=== PATIENT | male | born 1970 | race Caucasian/White ===

== ENCOUNTER 2020-07-04 11:30 | Emergency (ER) | payer OTHER ==
[~2020-07-04] VITALS: Ht 188 cm; Wt 128.4 kg
--- OUTSIDE RECORDS SUMMARY | 2020-07-04 11:51 | XMS REPORT | Continuity of Care Document ---
Author Author [id number] Organization [facility] Address Unknown Phone Unavailable Care Team Providers Care Sql Engineer Name Role Phone [employer] Unavailable Un available Problems Problem Status Onset Date Classification Date Reported Comments Source 453.9 - VENOUS THROMBOS Active 09/26/2012 [employer] Medications No Data Provided for This Section Allergies, Adverse Reactions, Alerts No Known Medication Allergies Immunizations No Data Provided for This Section Results No Data Provided for This Section Pathology Reports No Data Provided for This Section Diagnostic Reports No Data Provided for This Section Consultation Notes No Data Provided for This Section Discharge Summaries No Data Provided for This Section History and Physicals No Data Provided for This Section Vital Signs No Data Provided for This Section Encounters Location Location Details Encounter Type Encounter Number Reason For Visit Attending Provider ADM Date DC Date Status Source OD [id number] 453.9 - VENOUS THROMBOS AHSAN LEI 09/28/2012 Active [employer] Procedures No Data Provided for This Section Assessment and Plan No Data Provided for This Section Plan of Care No Data Provided for This Section Social History No Data Provided for This Section Family History No Data Provided for This Section Advance Directives No Data Provided for This Section Functional Status No Data Provided for This Section
--- OUTSIDE RECORDS SUMMARY | 2020-07-04 11:51 | XMS REPORT | Continuity of Care Document ---
Author Author [facility] Organization [facility] Address [address] [place] [address] Phone Unavailable Care Team Providers Care [employer] Supervisor Name Role Phone Unavailable Unavailable Payers Payer Name Policy Type Policy Number Effective Date Expiration Date S ource Problems Condition Name Condition Details Condition Category Status Onset Date Resolution Date Last Treatment Date Treating Clinician Comments Source 453.9 - VENOUS THROMBOS 453. 9 - VENOUS THROMBOS Active 09/26/2012 [facility] Diagnosis Active 2012-09-26 00:01:00 2012-09-28 15:33:00 [facility] Allergies, Adverse Reactions, Alerts Allergy Name Allergy Type Status Severity Reaction(s) Onset Date Inacti ve Date Treating Clinician Comments Source No Known Allergies DA Active U 2019-12-26 00:00:00 [facility] Medications This patient has no known medications. Procedures This patient has no known procedures. Results This patient has no known results.
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
== END 2020-07-04 12:53 | disposition home or self-care (01) ==
LOC: ER 11:42
DX: S16.1XXA Strain of muscle, fascia and tendon at neck level, initial encounter (principal); M25.512 Pain in left shoulder; V53.6XXA Passenger in pick-up truck or van injured in collision with car, pick-up truck or van in traffic accident, initial encounter; Y92.488 Other paved roadways as the place of occurrence of the external cause; I10 Essential (primary) hypertension; E11.9 Type 2 diabetes mellitus without complications; E78.5 Hyperlipidemia, unspecified; I25.2 Old myocardial infarction; Z95.1 Presence of aortocoronary bypass graft; Z86.73 Personal history of transient ischemic attack (TIA), and cerebral infarction without residual deficits
CPT/HCPCS: 99282

== ENCOUNTER 2021-02-14 09:54 | Observation (INO) | payer OTHER ==
[~2021-02-14] VITALS: Ht 188 cm; Wt 128.4 kg
[2021-02-14] MEDS ORDERED: SODIUM CHLORIDE 0.9% 500ML 500 ML IV ONE (10:15)
[2021-02-14 10:22] LABS: BASOPHILS # (AUTO) 0.1 (0.0-0.1); BASOPHILS % 0.7 % (0.0-1.0); EOSINOPHILS # (AUTO) 0.2 (0.0-0.4); HEMATOCRIT 41.7 % (38.2-49.6); HEMOGLOBIN 13.2 g/dL (14.0-18.0); LYMPHOCYTES # (AUTO) 1.8 (1.0-3.2); LYMPHOCYTES % 22.3 % (18.0-39.1); MEAN CORPUSCULAR HEMOGLOBIN 25.2 pg (28-32); MEAN CORPUSCULAR HGB CONC 31.7 g/dL (31-35); MEAN CORPUSCULAR VOLUME 79.6 fL (81-99); MONOCYTES # (AUTO) 0.6 (0.2-0.8); MONOCYTES % 7.3 % (4.4-11.3); NEUTROPHILS # (AUTO) 5.4 (2.1-6.9); NEUTROPHILS % 66.5 % (38.7-80.0); PLATELET COUNT 177 x10e3/uL (140-360); RED BLOOD COUNT 5.24 x10e6/uL (4.3-5.7); RED CELL DISTRIBUTION WIDTH 14.6 % (11.7-14.4)
[2021-02-14 10:37] LABS: ALBUMIN 3.5 g/dL (3.5-5.0); ALBUMIN/GLOBULIN RATIO 1.1 (0.8-2.0); ANION GAP 14.4 mmol/L (8-16); CALCIUM 8.6 mg/dL (8.4-10.2); CREATININE, SERUM 1.41 mg/dL (0.72-1.25); POTASSIUM 4.4 mmol/L (3.5-5.1)
[2021-02-14 10:44] LABS: CREATINE KINASE MB 4.7 ng/mL (0-5.0); INR 0.94; PARTIAL THROMBOPLASTIN TIME 27.4 seconds (23.8-35.5); PROTHROMBIN TIME 13.2 seconds (11.9-14.5)
[2021-02-14] MEDS ORDERED: ONDANSETRON HCL INJ 2MG/ML 2ML 2 MG/ML VIAL IV PRN (12:15)
[2021-02-14] MEDS ORDERED: DEXTROSE 50% SYRINGE 50 ML IV PRN (12:15)
[2021-02-14 14:15] LABS: CLARITY,URINE CLEAR (CLEAR); COLOR,URINE YELLOW (YELLOW); LEUKOCYTE ESTERASE ,URINE NEGATIVE (NEGATIVE); NITRITE,URINE NEGATIVE (NEGATIVE); PROTEIN,URINE DIPSTICK >=300 (NEGATIVE)
[2021-02-14 14:16] LABS: KETONES,URINE NEGATIVE (NEGATIVE); URINE UROBILINOGEN 0.2 mg/dL (0.2 - 1)
[2021-02-14 14:33] LABS: BACTERIA,URINE FEW /HPF; EPITHELIAL CELLS,URINE RARE /LPF; RBC,URINE 0-5 /HPF (0-5); WBC,URINE (MAN) 0-5 /HPF (0-5)
[2021-02-14 16:04] VITALS: BP 139/87
[2021-02-14] MEDS: INSULIN LISPRO 100 UNIT/1 ML 3ML VIAL SQ SCH ×2 (16:30→21:00)
[2021-02-14] MEDS ORDERED: METOPROLOL SUCC50 MG PO (16:56)
[2021-02-14] MEDS ORDERED: NEURONTIN400 MG PO (16:56)
[2021-02-14] MEDS ORDERED: MICARDIS80 MG PO (16:56)
[2021-02-14] MEDS ORDERED: TRULICITY1.5 MG/0.5 SQ (16:56)
[2021-02-14] MEDS ORDERED: WELCHOL625 MG PO (16:56)
[2021-02-14] MEDS ORDERED: FUROSEMIDE40 MG PO (16:56)
[2021-02-14] MEDS ORDERED: LANTUS 3ML100 UNITS/ SQ (16:56)
[2021-02-14] MEDS ORDERED: ASPIRIN325 MG PO (16:56)
[2021-02-14] MEDS ORDERED: XIGDUO XR 10 M1 EAC1 PO (16:56)
[2021-02-14] MEDS ORDERED: atorvastatin PO (16:56)
[2021-02-14 17:03] VITALS: BP 139/87
[2021-02-14 17:35] VITALS: BP 139/87
[2021-02-14] MEDS: MORPHINE SULFATE INJ 2 MG/ML SYR IV PRN ×2 (18:06→21:25)
[2021-02-14 18:08] LABS: CREATINE KINASE MB 4.3 ng/mL (0-5.0)
[2021-02-14] MEDS ORDERED: HUMALOG MI100 UNIT/2 SQ (18:30)
[2021-02-14 19:46] VITALS: BP 136/85
[2021-02-14 20:00] VITALS: BP 136/85
[2021-02-15] VITALS (9 sets, daily range): BP systolic 113–154; BP diastolic 69–88
[2021-02-15] MEDS: MORPHINE SULFATE INJ 2 MG/ML SYR IV PRN ×3 (00:50→08:32)
[2021-02-15 02:16] LABS: CREATINE KINASE MB 2.3 ng/mL (0-5.0)
[2021-02-15 05:17] LABS: BASOPHILS # (AUTO) 0.1 (0.0-0.1); BASOPHILS % 0.5 % (0.0-1.0); EOSINOPHILS # (AUTO) 0.2 (0.0-0.4); EOSINOPHILS % 1.5 % (0.0-6.0); HEMATOCRIT 38.1 % (38.2-49.6); LYMPHOCYTES # (AUTO) 1.5 (1.0-3.2); LYMPHOCYTES % 14.3 % (18.0-39.1); MEAN CORPUSCULAR HEMOGLOBIN 24.7 pg (28-32); MEAN CORPUSCULAR HGB CONC 31.5 g/dL (31-35); MEAN CORPUSCULAR VOLUME 78.6 fL (81-99); MONOCYTES # (AUTO) 0.9 (0.2-0.8); MONOCYTES % 8.7 % (4.4-11.3); NEUTROPHILS # (AUTO) 7.7 (2.1-6.9); NEUTROPHILS % 74.7 % (38.7-80.0); PLATELET COUNT 183 x10e3/uL (140-360); RED BLOOD COUNT 4.85 x10e6/uL (4.3-5.7); RED CELL DISTRIBUTION WIDTH 14.6 % (11.7-14.4)
[2021-02-15 05:57] LABS: ALANINE AMINOTRANSFERASE 39 IU/L (0-55); ALBUMIN 3.1 g/dL (3.5-5.0); ALKALINE PHOSPHATASE 38 IU/L (40-150); BLOOD UREA NITROGEN 24 mg/dL (7-26); BUN/CREATININE RATIO 20 (6-25); CALCIUM 8.4 mg/dL (8.4-10.2); CARBON DIOXIDE 23 mmol/L (22-29); CHLORIDE 108 mmol/L (98-107); CHOL/HDL RATIO 4.1 (3.9-4.7); CHOLESTEROL 90 MD/DL (0-199); CREATININE, SERUM 1.18 mg/dL (0.72-1.25); EST GLOMERULAR FILTRATION RATE > 60 ML/MIN (60-); GLUCOSE 146 mg/dL (74-118); HDL CHOLESTEROL 22 MG/DL (40-60); LDL CHOLESTEROL 42 MG/DL (60-130); SODIUM 141 mmol/L (136-145); TRIGLYCERIDES 131 MG/DL (0-149)
[2021-02-15 06:17] LABS: CREATINE KINASE MB 1.9 ng/mL (0-5.0)
[2021-02-15] MEDS: ATORVASTATIN 40 MG TAB PO SCH (08:30)
[2021-02-15] MEDS: ASPIRIN 325 MG TAB PO SCH (08:30)
[2021-02-15] MEDS: GABAPENTIN 400 MG CAP PO SCH ×2 (08:30→17:20)
[2021-02-15] MEDS: METOPROLOL SUCCINATE 50 MG TAB XL PO SCH (08:31)
[2021-02-15] MEDS: COLESEVELAM HCL 625 MG TAB PO SCH ×2 (08:31→17:20)
[2021-02-15] MEDS: INSULIN GLARGINE 100 UNITS/ML VIAL SQ SCH (08:31)
[2021-02-15] MEDS: INSULIN LISPRO 100 UNIT/1 ML 3ML VIAL SQ SCH ×4 (08:32→20:56)
[2021-02-15] MEDS ORDERED: FUROSEMIDE 20 MG TAB PO SCH (09:00)
[2021-02-15] MEDS ORDERED: MORPHINE SULFATE INJ 2 MG/ML SYR IV PRN (12:30)
[2021-02-15] MEDS: MORPHINE SULFATE INJ 4 MG/ML INJ 1ML IV PRN ×2 (13:00→18:30)
[2021-02-15] MEDS ORDERED: ONDANSETRON HCL 4 MG ORAL DISINTEGRATING TAB PO PRN (13:30)
[2021-02-15] MEDS: LIDOCAINE 4% PATCH TP SCH (16:04)
[2021-02-15] MEDS ORDERED: ENOXAPARIN SOD INJ 40 MG/0.4 ML SYR SC SCH (17:00)
[2021-02-16 04:00] VITALS: BP 131/86
[2021-02-16 05:09] LABS: BASOPHILS # (AUTO) 0.1 (0.0-0.1); BASOPHILS % 0.5 % (0.0-1.0); EOSINOPHILS # (AUTO) 0.2 (0.0-0.4); EOSINOPHILS % 1.6 % (0.0-6.0); HEMOGLOBIN 12.1 g/dL (14.0-18.0); LYMPHOCYTES # (AUTO) 1.7 (1.0-3.2); LYMPHOCYTES % 17.1 % (18.0-39.1); MEAN CORPUSCULAR HEMOGLOBIN 24.8 pg (28-32); MEAN CORPUSCULAR HGB CONC 31.8 g/dL (31-35); MEAN CORPUSCULAR VOLUME 77.9 fL (81-99); MONOCYTES % 10.4 % (4.4-11.3); NEUTROPHILS # (AUTO) 6.9 (2.1-6.9); NEUTROPHILS % 70.1 % (38.7-80.0); PLATELET COUNT 161 x10e3/uL (140-360); RED BLOOD COUNT 4.88 x10e6/uL (4.3-5.7); RED CELL DISTRIBUTION WIDTH 14.7 % (11.7-14.4)
[2021-02-16 05:28] LABS: ALANINE AMINOTRANSFERASE 29 IU/L (0-55); ALBUMIN/GLOBULIN RATIO 0.9 (0.8-2.0); ALKALINE PHOSPHATASE 43 IU/L (40-150); ANION GAP 12.2 mmol/L (8-16); BLOOD UREA NITROGEN 24 mg/dL (7-26); BUN/CREATININE RATIO 21 (6-25); CALCIUM 8.2 mg/dL (8.4-10.2); CARBON DIOXIDE 23 mmol/L (22-29); CHLORIDE 105 mmol/L (98-107); CREATININE, SERUM 1.13 mg/dL (0.72-1.25); EST GLOMERULAR FILTRATION RATE > 60 ML/MIN (60-); GLUCOSE 164 mg/dL (74-118); POTASSIUM 4.2 mmol/L (3.5-5.1); SODIUM 136 mmol/L (136-145)
[2021-02-16 07:22] VITALS: BP 136/87
[2021-02-16 08:25] VITALS: BP 136/87
[2021-02-16] MEDS: ASPIRIN 325 MG TAB PO SCH (08:25)
[2021-02-16] MEDS: ATORVASTATIN 40 MG TAB PO SCH (08:25)
[2021-02-16] MEDS: METOPROLOL SUCCINATE 50 MG TAB XL PO SCH (08:26)
[2021-02-16] MEDS: GABAPENTIN 400 MG CAP PO SCH (08:26)
[2021-02-16] MEDS: LIDOCAINE 4% PATCH TP SCH (08:27)
[2021-02-16] MEDS: COLESEVELAM HCL 625 MG TAB PO SCH (08:27)
[2021-02-16] MEDS: INSULIN GLARGINE 100 UNITS/ML VIAL SQ SCH (08:36)
[2021-02-16] MEDS: INSULIN LISPRO 100 UNIT/1 ML 3ML VIAL SQ SCH ×2 (08:36→12:00)
[2021-02-16] MEDS ORDERED: TELMISARTAN 40 MG TAB PO SCH (09:00)
[2021-02-16] MEDS ORDERED: FUROSEMIDE 40 MG TAB PO SCH (09:00)
[2021-02-16] MEDS ORDERED: INDOMETHACIN 75 MG CAPCR PO ONE (09:00)
[2021-02-16] MEDS ORDERED: LIDOCAINE 4% PATCH TP SCH (09:00)
[2021-02-16] MEDS ORDERED: DOCUSATE SODIUM 100 MG CAP PO SCH (09:45)
[2021-02-16 11:20] VITALS: BP 135/80
[2021-02-16] MEDS: MORPHINE SULFATE INJ 4 MG/ML INJ 1ML IV PRN (12:07)
[2021-02-16] MEDS ORDERED: TYLENOL # 31 EA PO ×2 (13:34→15:28)
[2021-02-16 15:27] VITALS: BP 126/88
== END 2021-02-16 16:31 | disposition home or self-care (01) ==
LOC: ER 10:13 → ERHOLD 10:35 → MED/SURG 15:50
PROVIDERS: ADMIT Internal Medicine; ATTEND Internal Medicine
DX: I35.0 Nonrheumatic aortic (valve) stenosis (principal); I10 Essential (primary) hypertension; E78.00 Pure hypercholesterolemia, unspecified; I13.0 Hypertensive heart and chronic kidney disease with heart failure and stage 1 through stage 4 chronic kidney disease, or unspecified chronic kidney disease; I50.32 Chronic diastolic (congestive) heart failure; N18.9 Chronic kidney disease, unspecified; E11.22 Type 2 diabetes mellitus with diabetic chronic kidney disease; Z79.899 Other long term (current) drug therapy; Z87.820 Personal history of traumatic brain injury; I69.351 Hemiplegia and hemiparesis following cerebral infarction affecting right dominant side; I25.10 Atherosclerotic heart disease of native coronary artery without angina pectoris; Z95.1 Presence of aortocoronary bypass graft; G47.30 Sleep apnea, unspecified; Z20.822 Contact with and (suspected) exposure to COVID-19; E66.9 Obesity, unspecified; Z68.36 Body mass index [BMI] 36.0-36.9, adult; N17.9 Acute kidney failure, unspecified; M79.672 Pain in left foot; M79.605 Pain in left leg
CPT/HCPCS: 36415 ×3; 70450; 71045; 72125; 73562; 73610; 80053 ×3; 80061; 81001; 82550 ×3; 82553 ×2; 82948 ×3; 83036; 83735; 83880; 84443; 84484 ×2; 85025 ×3; 85610; 85730; 87086; 93005; 93306; 93880; 97161; 97530; 99285; G0378 ×3; J1650; J2270 ×4; J7040; U0002